=== PATIENT | male | born 1995 | race Caucasian/White ===

== ENCOUNTER → 2018-03-01 | Outpatient (CLI) | payer BC ==
[~2018-03-01] MED LIST: CREATINE PO; IBUP-1277 PO
--- NOTE | 2018-03-01 12:07 | DIAGNOSTIC IMAGING REPORT ---
LEFT KNEE 2 VIEWS CLINICAL HISTORY: Left knee infection. FINDINGS: AP and lateral views of the left knee are correlated with radiographs of the left tibia and fibula dated 12/04/2015. The skeletal structures are well mineralized. No fracture is seen. The joint spaces of the knee are well-maintained. A small joint effusion is suggested. Mild prepatellar soft tissue swelling is noted. IMPRESSION: 1. Prepatellar soft tissues along with no acute bony abnormality seen in the left knee. 2. Question a small joint effusion. Electronically signed by: Cy Naylor M.D. 03/01/2018 12:06 PM Dictated Date/Time: 03/01/2018 12:04 PM
== END | disposition home or self-care (01) ==
LOC: C.RADPV 11:51
PROVIDERS: ATTEND Family Medicine
DX: M00.9 Pyogenic arthritis, unspecified (principal)

== ENCOUNTER → 2018-04-08 | Outpatient (CLI) | payer BC | END | disposition home or self-care (01) | LOC: C.LABPVFM 12:28 | PROVIDERS: ATTEND Family Medicine | DX: J02.9 Acute pharyngitis, unspecified (principal) ==

== ENCOUNTER 2018-12-24 18:23 | Inpatient (IN) ==
[2018-12-24] MEDS ORDERED: LORazepam 1 MG TAB PO STA (19:00)
[2018-12-24 19:23] LABS: Basophils # (auto) 0.03 K/uL (0-0.2); Basophils % (auto) 0.4 %; Eosinophils # (auto) 0.25 K/uL (0-0.5); Hematocrit (blood only) 46.1 % (42-52); Hemoglobin 16.5 g/dL (14.0-18.0); Immature Granulocytes # (auto) 0.02 K/uL (0.00-0.02); Immature Granulocytes % (auto) 0.2 %; Lymphocytes # (auto) 1.29 K/uL (1.2-3.4); Lymphocytes % (auto) 15.4 %; Mean Corpuscular Hgb Conc 35.8 g/dL (32-36); Mean Corpuscular Volume 88.7 fL (80-100); Mean Platelet Volume 9.6 fL (7.4-10.4); Monocytes # (auto) 0.48 K/uL (0.11-0.59); Monocytes % (auto) 5.7 %; Neutrophils # (auto) 6.29 K/uL (1.4-6.5); Neutrophils % (auto) 75.3 %; Platelet Count 260 K/uL (130-400); RDW Coefficient of Variation 12.5 % (11.5-14.5); RDW Standard Deviation 40.2 fL (36.4-46.3); White Blood Count 8.36 K/uL (4.8-10.8)
[2018-12-24 19:35] LABS: Appearance Urine Clear (Clear); Bilirubin Urine Negative (Negative); Color Urine Yellow; Glucose Urine UA Negative (Negative); Ketones Urine 2+ (Negative); Leukocyte Esterase Urine Negative (Negative); Nitrite Urine Negative (Negative); Protein Urine Negative (Negative); Specific Gravity Urine 1.024 (1.000-1.030); Urobilinogen Urine Negative (Negative)
[2018-12-24 19:41] LABS: Albumin Level 4.9 gm/dl (3.4-5.0); BUN Creatinine Ratio 14.3 (10-20); Calcium 9.6 mg/dl (8.5-10.1); Creatinine Clr Calc Pharmacy 108.2 ml/min; Est GFR (African American) 113.1; Est GFR (Non-African American) 97.6
--- NOTE | 2018-12-24 19:47 | Emergency Department Note ---
Entered by Anastasia Olmedo acting as a scribe for Neo Sena DO History of Present Illness General Chief Complaint: Mental Health Evaluation Stated Complaint: 302, MENTAL HEALTH Time Seen by Provider: 12/24/18 18:45 Source: patient Mode of arrival: ambulatory Limitations: no limitations History of Present Illness Provider complaint: suicidal ideation Onset (ago): hour(s) (earlier today) Duration: other (episode) History of same: Yes Exacerbated By: + other (withdrawal) Context: + recent drug abuse and + significant life stressor Associated symptoms: + denies other symptoms (fever) and + nausea; no vomiting The patient is a 23 year old male who presents to the Emergency Room for a psych evaluation. The patient reports that he got out of rehab about 3 months ago and was clean for a month, but has used marijuana, Xanax and Heroin on and off for the past 2 months. He states that he woke up this morning experiencing withdrawal symptoms, and later found out that he was only scheduled to work only one day this week. He notes that he was feeling upset, so he messaged his mother that he wanted to kill himself. He reports that his mother "did not care, " so he messaged his girlfriend stating that he "wanted to blow his brains out. " The patient states that he "was not serious" and that he said it out of frustration. He reports that all the guns at his home are locked up. He admits to having suicidal ideations in the past and notes that he was admitted at this hospital for an intentional overdose of Tylenol. He denies any recent fevers, pain, vomiting or leg swelling. The patient reports that he last used IV heroin and PO Xanax 2 nights ago. He denies any alcohol use or persistent suicidal thoughts. Allergies Allergy/AdvReac Type Severity Reaction Status Date / Time No Known Allergies Allergy Verified 12/24/18 21:02 Past Med/Surg History Medical History Benzodiazepine abuse Heroin abuse IVDU (intravenous drug user) Substance abuse Surgical History No significant past surgical history Social History Current Living Situation: Family Feels Safe at Home: Yes Smoking Status: Current every day smoker Tobacco Type: e-cigarettes Hx Alcohol Use: Yes Hx Substance Use: Yes substance use type: marijuana, heroin and sedatives Last Used Substance: Days (ago) Last Used Substance Other:: 2 Beliefs That Will Affect Care: None Preferred Language: Guyanese Communication Ability: Effective Review of Systems See HPI for pertinent positives & negatives. and A total of 10 systems reviewed and were otherwise negative Physical Exam Vital Signs Vital Signs - 24 hr 12/24/18 18:41 12/24/18 21:01 12/24/18 23:00 Temperature 36.6 C Temperature Source Oral Sepsis Recent Fever Within 48 Hours No Sepsis New/Unexplained Change in Mental Status No Sepsis Action Taken by Nursing No Action Required Pulse Rate 75 Pulse Rate [Finger] 89 76 Pulse Rate [Left Brachial] Pulse Rhythm Regular Pulse Rhythm [Finger] Regular Regular Pulse Rhythm [Left Brachial] Pulse Strength Normal Pulse Strength [Finger] Normal Normal Pulse Strength [Left Brachial] Respiratory Rate 20 20 20 Respiratory Effort / Characteristics Non-Labored Non-Labored Non-Labored Respiratory Depth Normal Normal Normal Respiratory Pattern Regular Regular Regular Blood Pressure 118/79 Blood Pressure [Left Arm] 133/77 116/58 L Blood Pressure Mean 92 Blood Pressure Mean [Left Arm] 95 77 Blood Pressure Position Sitting Blood Pressure Position [Left Arm] Sitting Sitting Pulse Oximetry 99 98 98 Oxygen Delivery Method Room Air Room Air Room Air 12/25/18 00:10 12/25/18 06:31 12/25/18 09:23 Temperature 36.8 C 36.4 C L 36.5 C Temperature Source Oral Oral Oral Sepsis Recent Fever Within 48 Hours Sepsis New/Unexplained Change in Mental Status Sepsis Action Taken by Nursing Pulse Rate Pulse Rate [Finger] 68 Pulse Rate [Left Brachial] 76 78 Pulse Rhythm Pulse Rhythm [Finger] Regular Pulse Rhythm [Left Brachial] Regular Regular Pulse Strength Pulse Strength [Finger] Normal Pulse Strength [Left Brachial] Normal Normal Respiratory Rate 18 16 16 Respiratory Effort / Characteristics Non-Labored Spontaneous Non-Labored Non-Labored Respiratory Depth Normal Normal Normal Respiratory Pattern Regular Regular Blood Pressure Blood Pressure [Left Arm] 116/72 110/73 121/79 Blood Pressure Mean Blood Pressure Mean [Left Arm] 86 85 93 Blood Pressure Position Blood Pressure Position [Left Arm] Lying Sitting Lying Pulse Oximetry Oxygen Delivery Method Room Air GENERAL: Patient is awake and alert. He is somewhat anxious and guarded. EYES: The conjunctivae are clear. The pupils are round and reactive. EARS, NOSE, MOUTH AND THROAT: The nose is without any evidence of any deformity. Mucous membranes are moist tongue is midline NECK: The neck is nontender and supple. RESPIRATORY: Normal respiratory effort is noted there is no evidence of wheezing rhonchi or rales CARDIOVASCULAR: Regular rate and rhythm noted there no murmurs rubs or gallops normal S1 normal S2 GASTROINTESTINAL: The abdomen is soft. Bowel sounds are present in all quadrants. Abdomen is nontender. MUSCULOSKELETAL/EXTREMITIES: There is no evidence of gross deformity full range of motion is noted in the hips and shoulders SKIN: There is no obvious evidence of any rash. There is no pedal edema noted. Patient has track [place] in his right antecubital fossa. There is no signs of erythema or swelling. NEUROLOGIC: Patient is awake alert and oriented x3 strength is symmetric patellar reflexes are 2+ bilaterally PSYCH: The patient is guarded appearing. He is somewhat anxious. He is currently denying any suicidal homicidal ideation but he does admit to making those statements earlier to his mother as well as his significant other. Course 1849: Past medical records reviewed. The patient was evaluated in room A7, and a complete history and physical examination were performed. 2244: The patient was accepted into [address] [place] [address]. Administered Medications Discontinued Medications Lorazepam (Ativan) 1 mg PO NOW STA Stop: 12/24/18 19:01 Last Admin: 12/24/18 19:21 Dose: 1 mg Medical Decision Making Differential Diagnosis Differential diagnoses considered include mood disorder, infection, hypoglycemia , electrolyte abnormalities, cardiac sources, intracerebral event, toxicologic, neurologic, as well as others. Medical Records Attestation: I reviewed the patient's medical records. Home Medications Current Medication List: was personally reviewed by me Laboratory Data Attestation: I reviewed the patient's lab results. Result diagrams: 12/24/18 19:03 12/24/18 19:03 Lab Results 12/24/18 12/24/18 12/24/18 Range/Units 19:00 19:00 19:03 WBC 8.36 (4.8-10.8) K/uL RBC 5.20 (4.7-6.1) M/uL Hgb 16.5 (14.0-18.0) g/dL Hct 46.1 (42-52) % MCV 88.7 (80-100) fL MCH 31.7 (25-34) pg MCHC 35.8 (32-36) g/dL RDW Std Deviation 40.2 (36.4-46.3) fL RDW Coeff of Tamika 12.5 (11.5-14.5) % Plt Count 260 (130-400) K/uL MPV 9.6 (7.4-10.4) fL Immature Gran % (Auto) 0.2 % Neut % (Auto) 75.3 % Lymph % (Auto) 15.4 % Dodge % (Auto) 5.7 % Eos % (Auto) 3.0 % Baso % (Auto) 0.4 % Immature Gran # (Auto) 0.02 (0.00-0.02) K/uL Neut # (Auto) 6.29 (1.4-6.5) K/uL Lymph # (Auto) 1.29 (1.2-3.4) K/uL Dodge # (Auto) 0.48 (0.11-0.59) K/uL Eos # (Auto) 0.25 (0-0.5) K/uL Baso # (Auto) 0.03 (0-0.2) K/uL Sodium (136-145) mmol/L Potassium (3.5-5.1) mmol/L Chloride (98-107) mmol/L Carbon Dioxide (21-32) mmol/L Anion Gap (3-11) BUN (7-18) mg/dl Creatinine (0.6-1.4) mg/dl Est Cr Clr Drug Dosing ml/min Est GFR ( Amer) Est GFR (Non-Af Amer) BUN/Creatinine Ratio (10-20) Glucose (70-99) mg/dl Calcium (8.5-10.1) mg/dl Total Bilirubin (0.2-1) mg/dl AST (15-37) U/L ALT (12-78) U/L Alkaline Phosphatase (45-117) U/L Total Protein (6.4-8.2) gm/dl Albumin (3.4-5.0) gm/dl Globulin (2.5-4.0) gm/dl Albumin/Globulin Ratio (0.9-2) TSH (0.300-4.500) uIu/ml Urine Color Yellow Urine Appearance Clear (Clear) Urine pH 6.0 (4.5-7.5) Ur Specific Davis 1.024 (1.000-1.030) Urine Protein Negative (Negative) Urine Glucose (UA) Negative (Negative) Urine Ketones 2+ H (Negative) Urine Blood Negative (Negative) Urine Nitrite Negative (Negative) Urine Bilirubin Negative (Negative) Urine Urobilinogen Negative (Negative) Ur Leukocyte Esterase Negative (Negative) Salicylates (2.8-20) mg/dl Urine Opiates Screen Pos H (Neg) Ur Methadone, Qual Neg (Neg) Acetaminophen (10-30) ug/ml Urine Barbiturates Neg (Neg) Ur Phencyclidine (PCP) Neg (Neg) U Amphetamin/Meth Scrn Neg (Neg) MDMA (Ecstasy) Screen Neg (Neg) U Benzodiazepines Scrn Neg (Neg) Ur Cocaine Metabolite Neg (Neg) U Marijuana (THC) Screen Pos H (Neg) Ethyl Alcohol mg/dL (0-3) mg/dl 12/24/18 12/24/18 12/24/18 Range/Units 19:03 19:03 19:03 WBC (4.8-10.8) K/uL RBC (4.7-6.1) M/uL Hgb (14.0-18.0) g/dL Hct (42-52) % MCV (80-100) fL MCH (25-34) pg MCHC (32-36) g/dL RDW Std Deviation (36.4-46.3) fL RDW Coeff of Tamika (11.5-14.5) % Plt Count (130-400) K/uL MPV (7.4-10.4) fL Immature Gran % (Auto) % Neut % (Auto) % Lymph % (Auto) % Dodge % (Auto) % Eos % (Auto) % Baso % (Auto) % Immature Gran # (Auto) (0.00-0.02) K/uL Neut # (Auto) (1.4-6.5) K/uL Lymph # (Auto) (1.2-3.4) K/uL Dodge # (Auto) (0.11-0.59) K/uL Eos # (Auto) (0-0.5) K/uL Baso # (Auto) (0-0.2) K/uL Sodium 138 (136-145) mmol/L Potassium 4.0 (3.5-5.1) mmol/L Chloride 105 (98-107) mmol/L Carbon Dioxide 24 (21-32) mmol/L Anion Gap 9.0 (3-11) BUN 15 (7-18) mg/dl Creatinine 1.08 (0.6-1.4) mg/dl Est Cr Clr Drug Dosing 108.2 ml/min Est GFR ( Amer) 113.1 Est GFR (Non-Af Amer) 97.6 BUN/Creatinine Ratio 14.3 (10-20) Glucose 77 (70-99) mg/dl Calcium 9.6 (8.5-10.1) mg/dl Total Bilirubin 1.6 H (0.2-1) mg/dl AST 15 (15-37) U/L ALT 23 (12-78) U/L Alkaline Phosphatase 82 (45-117) U/L Total Protein 8.0 (6.4-8.2) gm/dl Albumin 4.9 (3.4-5.0) gm/dl Globulin 3.1 (2.5-4.0) gm/dl Albumin/Globulin Ratio 1.6 (0.9-2) TSH 0.748 (0.300-4.500) uIu/ml Urine Color Urine Appearance (Clear) Urine pH (4.5-7.5) Ur Specific Davis (1.000-1.030) Urine Protein (Negative) Urine Glucose (UA) (Negative) Urine Ketones (Negative) Urine Blood (Negative) Urine Nitrite (Negative) Urine Bilirubin (Negative) Urine Urobilinogen (Negative) Ur Leukocyte Esterase (Negative) Salicylates < 1.7 L (2.8-20) mg/dl Urine Opiates Screen (Neg) Ur Methadone, Qual (Neg) Acetaminophen < 2 L (10-30) ug/ml Urine Barbiturates (Neg) Ur Phencyclidine (PCP) (Neg) U Amphetamin/Meth Scrn (Neg) MDMA (Ecstasy) Screen (Neg) U Benzodiazepines Scrn (Neg) Ur Cocaine Metabolite (Neg) U Marijuana (THC) Screen (Neg) Ethyl Alcohol mg/dL < 3.0 (0-3) mg/dl Blood Pressure Blood Pressure Findings: Normal blood pressure Blood Pressure Disposition: did not require urgent referral MDM Narrative The patient is a 23-year-old male who presented to the emergency department for mental health evaluation. The patient has significant depression and suicidal ideation thoughts that he conveyed to family members. The patient was medically cleared in the emergency department. He was very anxious and was treated for his anxiety. The patient was reevaluated. He was felt to be a good candidate for voluntary admission. He was evaluated by the mental health case resource manager. He was felt to be a good candidate for admission to our inpatient unit. He was accepted as a 201. Impression & Plan Depression, Suicidal ideation Discharge Plan Visit Data *Final* Discharge Date/Time: 12/24/18 23:37 Chief Complaint: Mental Health Evaluation Stated Complaint: 302, MENTAL HEALTH ED Provider: Neo Sena Discharge Problem: Depression, Suicidal ideation Patient Disposition: Transfer Behavioral Health Fac Discharge Instructions Interventions: ED Discharge Assessment Last Done: 12/24/18 23:37 The scribe's documentation has been prepared under my direction and personally reviewed by me in its entirety. I confirm that the note above accurately reflects all work, treatment, procedures, and medical decision making performed by me.
[2018-12-24 19:51] LABS: Albumin Globulin Ratio 1.6 (0.9-2); Bilirubin,Total 1.6 mg/dl (0.2-1); Globulin 3.1 gm/dl (2.5-4.0)
[2018-12-24 20:00] LABS: Amphetamines+Metham, Urine Neg (Neg); Barbiturates, Urine Neg (Neg); Benzodiazepine, Urine Neg (Neg); Cocaine, Urine Neg (Neg); MDMA (Ecstacy), Urine Neg (Neg); Methadone, Urine Neg (Neg); Opiate, Urine Pos (Neg); Phencyclidine, Urine Neg (Neg)
[2018-12-24 20:01] LABS: Acetaminophen < 2 ug/ml (10-30); Salicylate < 1.7 mg/dl (2.8-20)
[2018-12-24] MEDS ORDERED: ACETAMINOPHEN 325 MG TAB PO PRN (23:49)
[2018-12-24] MEDS ORDERED: BISMUTH SUBSALICYLATE PER ML OMNICELL CHARGE PO PRN (23:49)
[2018-12-24] MEDS ORDERED: ALUMINUM/MAGNESIUM SUSP 30 ML UDC PO PRN (23:49)
[2018-12-24] MEDS ORDERED: SODIUM CHLORIDE 0.65% NA SOLN 45 ML (OCEAN) PRN (23:49)
[2018-12-24] MEDS ORDERED: MAGNESIUM HYDROXIDE SUSP 30 ML UDC PO PRN (23:49)
[2018-12-25] MEDS ORDERED: DIPHENOXYLATE/ATROPINE 2.5/0.025MG TAB PO PRN (09:14)
--- NOTE | 2018-12-25 09:55 | History & Physical ---
Date of Service December 25, 2018 Impression / Recommendations Impression 23-year-old single adopted male with a history of polysubstance abuse and a question of substance-induced mood disorder who presents in opiate withdrawal after using heroin heavily for the past month. He made suicidal statements to his mother and girlfriend prior to admission, but states he did not mean it and said it because he was upset that he was not getting as many hours at work and might not be able to continue to live with his parents due to his behavior. He had also just discovered that he may face charges for theft, and was starting to withdraw from drugs, so says he "freaked out" and made suicidal statements. He denies now that he was ever suicidal, and makes comments that he "knows how to play the system." We have reviewed the primary recommendation, which is for inpatient rehab, with transfer directly from the hospital to a rehab facility. (1) Suicidal ideation: 12/25 - Although patient admits to making suicidal statements prior to admission, he denies that he was ever suicidal and says he made the statements out of anger/attempts to manipulate others. This is consistent with malingering , given the secondary gain of avoiding legal consequences (is on probation with possible new charges and ongoing drug use), and possible loss of housing. -Continue safety checks here, and work on healthy coping skills and discharge safety plan. -Family meeting with parents; confirm that guns are still locked and patient does not have access (per ER notes, mother reported they are). Even though patient denies he was ever truly suicidal, he does have risk factors, including his history of self-harm, substance abuse, impulsivity, and numerous psychosocial stressors. Present on Admission?: Yes (2) Heroin abuse: 12/25 -treat withdrawal symptoms with clonidine as needed. -Reviewed the risks of ongoing drug use, including negative effects on mood, anxiety, overall health, illness transmission via needles, negative impact to relationships and functioning, and legal consequences. Reviewed that we cannot make a primary mental health diagnosis while he is actively using, and that the primary treatment recommendation is inpatient rehab. He states willingness to attend rehab at a specific facility in [place], wants to be able to go home first. Reviewed with him that this is certainly not recommended, due to the risk of relapse, and that we would recommend direct transfer from the hospital to a rehab facility. Reviewed the need to allow referrals to multiple facilities so that treatment can begin as soon as possible. The patient is psychiatrically appropriate for transfer to rehab as soon as a bed can be secured. Present on Admission?: Yes (3) Benzodiazepine abuse: 12/25 -[facility] protocol for withdrawal. -See above regarding substance abuse treatment recommendations. Present on Admission?: Yes Inventory Assets Strengths: Supportive parents, possible willingness for rehab Needs: Inpatient rehab, [place] with the legal system Risk Factors Assessment Male: Yes : No Do You Have Access To A Gun?: No (Parents have guns, but locks them and the patient does not have access.) Health Problems: No Mental Health Diagnoses: Yes (Possibly, although unclear if all of his mood symptoms are in fact substance-induced) Substance Use Disorders: Yes Previous Attempt: Yes Previous Attempt; Highly Lethal: Yes Family History of Suicide: No Previous Psychiatric Hospitalization: Yes Hopelessness: No Smoker: Yes Protective Factors Assessment Rastafari Beliefs: No : No Responsible for Young Children: No Employed: Yes Stable Relationships: Yes Supportive Family: Yes Good Rapport with Provider: No Psychiatric History Identifying Data FRIDA BETTENCOURT is a 23-year-old M who currently lives in [place] with his parents, has a history of substance-induced mood disorder and polysubstance abuse (benzodiazepines, cough syrup, heroin, and cannabis), and was admitted on 12/24/18 22:55 on a 201 voluntary commitment for suicidal ideation and substance abuse. Chief Complaint "Feel sick, withdrawing from stuff". History of Present Illness Patient is known to us from a previous hospitalization for 3 days in October of this year after he overdosed on Tylenol in the context of severe substance abuse. He had been using alprazolam, cannabis, heroin, and cough syrup. He stated that he obtained a large amount of alprazolam with intent to sell it, but then started using it, and became suicidal. The primary recommendation was for inpatient rehab, which he refused. He also refused outpatient substance abuse treatment. He was uncooperative with treatment, refused to attend groups , but did agree to resume lamotrigine, as he previously felt it was beneficial. He had inappropriate behavior on the unit and attempted to elope during his stay. A family meeting was held with his parents, and family therapy was recommended. His mother agreed to control his medications, and parents confirmed that firearms in the home were secured and he would not have access. He eventually agreed to follow up with a substance abuse counselor, and was referred to [facility]. He presented to the ER last night after he made suicidal statements to his mother and girlfriend. He denied suicidal thoughts in the ER, but admitted he had made statements prior to presentation. Track wellington were noted on his right arm, and he admitted to regular heroin and benzodiazepine use. His drug screen was positive for opiates and benzodiazepines. He said that he was withdrawing from drugs, and then got into an argument with his mother as he was upset that he was not scheduled to work very much over the next 2 weeks, and because he did not think she was taking him seriously, he made threats to kill himself by "blowing his brains out." He stated that there are guns at his parents' home, but he does not have access to them as they are locked up. He admitted that he was noncompliant with Lamictal and had not been taking it for at least a month, and that he never followed up with outpatient treatment. He reported willingness for rehab, and said he had been in contact with a facility in [place] called at [facility] and wanted to go there. His mother reported to ER staff that the patient has been using drugs heavily, has lost 30 pounds in the past few weeks (although his weight on admission was only a few pounds less than his weight in October), and that his employer recently notified her that he had stolen from the store and they would be pressing charges. He also stole his mother's gold bracelet. He made comments that he "knows how to play the system." On my assessment, the patient was resistant to getting out of bed to participate in the interview. He stated that he does not feel well, and is having withdrawal symptoms, but was vague and evasive when asked what he was withdrawing from, stating "stuff," "just using," and "drugs." He eventually reported using heroin about 20 out of the past 30 days, typically 3-4 bags a day , and benzodiazepines, from 2-16 mg of alprazolam daily. He states that he "freaked out" after he found out he was only scheduled to work one day a week for the next couple of weeks, as his parents told him that if he was not working he could not continue to live with them. He denies that he was ever suicidal, stating "it was not real," "I just said it." He initially states he is willing for rehab, then states he will only go to the facility in [place] , and he wants to go home for so that he can pack his bags. When advised of the recommendations to go directly to rehab from the hospital, and that his parents could pack his belongings for him, he says he will not allow that and wants to go home first. No symptoms consistent with radha (other than elevated mood, impulsivity and disregulated sleep, which occurred abusing multiple substances), psychosis, HI. Reports anxiety in the context of withdrawal. Past Psychiatric History Previous Psych History: Per patient, he was diagnosed with bipolar disorder in the past. At the time of his last hospitalization here, he was diagnosed with substance-induced mood disorder, but there is no evidence to support a bipolar disorder diagnosis. He has never been compliant with outpatient psychiatric treatment; although he has been scheduled to see multiple psychiatrist in the past, he has not followed through. Current Psychiatric Diagnosis: Substance abuse, history of substance-induced mood disorder Outpatient Services: None. Was referred to [facility] October 2018, but did not attend his appointment. Previous Psych Admissions: [facility] behavioral health unit for 3 days in October 2018. Do You Have Access To A Gun?: No (Parents have guns, but locks them and the patient does not have access.) History of Previous Suicide Attempt: Yes Describe Attempts in the Past: October 2018 - OD on Tylenol Past Medication Trials: Lamotrigine -noncompliant, although reported it was helpful in the past for mood stability Gabapentin -discontinued due to abuse Allergies Allergy/AdvReac Type Severity Reaction Status Date / Time No Known Allergies Allergy Verified 12/24/18 21:02 Family History Family History of: Alcoholism/Drug Abuse and Doesn't Know Alcohol History Hx of Alcohol Use Over the Past 12 Months: No AUDIT Total Score: 0 Smoking Use Have You Smoked or Used Tobacco Products in the Last 30 Days: Yes tobacco type: e-cigarettes Smoking Status: Current every day smoker Substance History Hx of Prescription Med Misuse Over the Past 12 Months: Yes (Xanax: 11-12 bars ( 2mg each) at a time, daily for at least the past month) Hx of Over the Counter Med Misuse Over the Past 12 Months: No Hx of Inhalent Misuse Over the Past 12 Months: No Hx of Organic Substance Use Over the Past 12 Months: Yes (Cannabis) Hx of Illegal Substances/Street Drug Use Over Past 12 Months: Yes (IV heroin use , patient estimates 20 out of the past 30 days, 3-4 bags a day.) Problems as a Result of Past Substance Use: Arrested, Life out of Control, Sustained Bodily Harm, Attempted Suicide and Loss of Family Support Problems as a Result of Past Substance Use Comments: arrested for selling pot - multiple felony charges Personal History Living Arrangements: Home Living Arrangements Comments: With parents in spring Highest Grade Completed: High School Graduate 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 at the time of his last hospitalization. Hx Legal Problems: Yes (On probation for felony drug charges) Patient History Medical History Benzodiazepine abuse Heroin abuse IVDU (intravenous drug user) Substance abuse Surgical History No significant past surgical history Family History Mother Substance abuse Social History Current Living Situation: Family Feels Safe at Home: Yes Smoking Status: Current every day smoker Tobacco Type: e-cigarettes Hx Alcohol Use: Yes Hx Substance Use: Yes substance use type: marijuana, heroin and sedatives Last Used Substance: Days (ago) Last Used Substance Other:: 2 Beliefs That Will Affect Care: None Preferred Language: Egyptian Communication Ability: Effective Review of Systems All systems reviewed & are unremarkable except as noted in HPI & below rhinorrhea, achiness, nausea Physical Exam Psychiatric Orientation: alert; + uncooperative Not forthcoming with information, evasive. Lying in bed in no acute distress. Shirtless, nose pierced. Eye Contact: + poor eye contact Motor Behavior: no abnormal motor movements Speech: normal rate/rhythm/volume of speech Affect: + blunted affect "I'm sick, withdrawing." Thought Process: goal directed thought process Thought Content: reality based without delusions Suicidal Thoughts: + reports suicidal thoughts Homicidal Thoughts: + reports homicidal thoughts Hallucinations: no auditory hallucinations and no visual hallucinations Cognition: recent memory grossly intact, attention grossly intact and language grossly intact Estimated Intelligence: consistent with education level Insight: + poor insight Judgement: + poor judgement Vital Signs (Past 24 Hours) Last Vital Signs Temp 36.4 C L 12/25/18 06:31 Pulse 76 12/25/18 06:31 Resp 16 12/25/18 06:31 BP 145/83 H 12/25/18 06:31 Pulse Ox 98 12/24/18 23:00 A physical exam was performed in the ER prior to admission to the unit by Dr. Sena. I accept that physical as correct/medical clearance for the inpatient physical exam. Results & Data Laboratory Results Laboratory Results - last 24 hr 12/24/18 12/24/18 12/24/18 19:00 19:00 19:03 WBC 8.36 RBC 5.20 Hgb 16.5 Hct 46.1 MCV 88.7 MCH 31.7 MCHC 35.8 RDW Std Deviation 40.2 RDW Coeff of Tamika 12.5 Plt Count 260 MPV 9.6 Immature Gran % (Auto) 0.2 Neut % (Auto) 75.3 Lymph % (Auto) 15.4 [place] % (Auto) 5.7 Eos % (Auto) 3.0 Baso % (Auto) 0.4 Immature Gran # (Auto) 0.02 Neut # (Auto) 6.29 Lymph # (Auto) 1.29 [place] # (Auto) 0.48 Eos # (Auto) 0.25 Baso # (Auto) 0.03 Sodium Potassium Chloride Carbon Dioxide Anion Gap BUN Creatinine Est Cr Clr Drug Dosing Est GFR ( Amer) Est GFR (Non-Af Amer) BUN/Creatinine Ratio Glucose Calcium Total Bilirubin AST ALT Alkaline Phosphatase Total Protein Albumin Globulin Albumin/Globulin Ratio TSH Urine Color Yellow Urine Appearance Clear Urine pH 6.0 Ur Specific [place] 1.024 Urine Protein Negative Urine Glucose (UA) Negative Urine Ketones 2+ H Urine Blood Negative Urine Nitrite Negative Urine Bilirubin Negative Urine Urobilinogen Negative Ur Leukocyte Esterase Negative Salicylates Urine Opiates Screen Pos H Ur Methadone, Qual Neg Acetaminophen Urine Barbiturates Neg Ur Phencyclidine (PCP) Neg U Amphetamin/Meth Scrn Neg MDMA (Ecstasy) Screen Neg U Benzodiazepines Scrn Neg Ur Cocaine Metabolite Neg U Marijuana (THC) Screen Pos H Ethyl Alcohol mg/dL 12/24/18 12/24/18 12/24/18 19:03 19:03 19:03 WBC RBC Hgb Hct MCV MCH MCHC RDW Std Deviation RDW Coeff of Tamika Plt Count MPV Immature Gran % (Auto) Neut % (Auto) Lymph % (Auto) [place] % (Auto) Eos % (Auto) Baso % (Auto) Immature Gran # (Auto) Neut # (Auto) Lymph # (Auto) [place] # (Auto) Eos # (Auto) Baso # (Auto) Sodium 138 Potassium 4.0 Chloride 105 Carbon Dioxide 24 Anion Gap 9.0 BUN 15 Creatinine 1.08 Est Cr Clr Drug Dosing 108.2 Est GFR ( Amer) 113.1 Est GFR (Non-Af Amer) 97.6 BUN/Creatinine Ratio 14.3 Glucose 77 Calcium 9.6 Total Bilirubin 1.6 H AST 15 ALT 23 Alkaline Phosphatase 82 Total Protein 8.0 Albumin 4.9 Globulin 3.1 Albumin/Globulin Ratio 1.6 TSH 0.748 Urine Color Urine Appearance Urine pH Ur Specific [place] Urine Protein Urine Glucose (UA) Urine Ketones Urine Blood Urine Nitrite Urine Bilirubin Urine Urobilinogen Ur Leukocyte Esterase Salicylates < 1.7 L Urine Opiates Screen Ur Methadone, Qual Acetaminophen < 2 L Urine Barbiturates Ur Phencyclidine (PCP) U Amphetamin/Meth Scrn MDMA (Ecstasy) Screen U Benzodiazepines Scrn Ur Cocaine Metabolite U Marijuana (THC) Screen Ethyl Alcohol mg/dL < 3.0 Current Inpatient Medications Current Inpatient Medications: Current Inpatient Medications Acetaminophen (Tylenol) 650 mg PO Q4H PRN PRN Reason: Headache or Minor Fever Stop: 01/23/19 23:48 Al Hydrox/Mg Hydrox/Simethicone (Maalox) 30 ml PO Q4H PRN PRN Reason: GI Upset Stop: 01/23/19 23:48 Bismuth Subsalicylate (Kaopectate) 15 ml PO PRN PRN PRN Reason: Loose Stool Stop: 01/23/19 23:48 Diphenoxylate HCl/Atropine (Lomotil) 1 tab PO Q4H PRN PRN Reason: Abdomincal cramping/diarrhea Stop: 01/24/19 09:13 Hydroxyzine HCl (Vistaril) 25 mg PO Q4H PRN PRN Reason: Anxiety Stop: 01/23/19 23:48 Hydroxyzine HCl (Vistaril) 50 mg PO HSZ PRN PRN Reason: Insomnia Stop: 01/23/19 23:48 Magnesium Hydroxide (Milk Of Magnesia) 30 ml PO DAILY PRN PRN Reason: Heartburn Stop: 01/23/19 23:48 Sodium Chloride ([place] Nasal) 1 - 2 sprays NA PRN PRN PRN Reason: Nasal Dryness/Congestion Stop: 01/23/19 23:48 CPT Code CPT Code Initial Hospital Care: [id number]
[2018-12-25] MEDS ORDERED: cloNIDine HCl 0.1 MG TAB PO PRN (11:09)
--- NOTE | 2018-12-25 12:38 | Discharge Summary ---
Date of Service December 25, 2018 History of Present Illness Patient is known to us from a previous hospitalization for 3 days in October of this year after he overdosed on Tylenol in the context of severe substance abuse. He had been using alprazolam, cannabis, heroin, and cough syrup. He stated that he obtained a large amount of alprazolam with intent to sell it, but then started using it, and became suicidal. The primary recommendation was for inpatient rehab, which he refused. He also refused outpatient substance abuse treatment. He was uncooperative with treatment, refused to attend groups , but did agree to resume lamotrigine, as he previously felt it was beneficial. He had inappropriate behavior on the unit and attempted to elope during his stay. A family meeting was held with his parents, and family therapy was recommended. His mother agreed to control his medications, and parents confirmed that firearms in the home were secured and he would not have access. He eventually agreed to follow up with a substance abuse counselor, and was referred to [facility]. He presented to the ER last night after he made suicidal statements to his mother and girlfriend. He denied suicidal thoughts in the ER, but admitted he had made statements prior to presentation. Track wellington were noted on his right arm, and he admitted to regular heroin and benzodiazepine use. His drug screen was positive for opiates and benzodiazepines. He said that he was withdrawing from drugs, and then got into an argument with his mother as he was upset that he was not scheduled to work very much over the next 2 weeks, and because he did not think she was taking him seriously, he made threats to kill himself by "blowing his brains out." He stated that there are guns at his parents' home, but he does not have access to them as they are locked up. He admitted that he was noncompliant with Lamictal and had not been taking it for at least a month, and that he never followed up with outpatient treatment. He reported willingness for rehab, and said he had been in contact with a facility in [place] called at [facility] and wanted to go there. His mother reported to ER staff that the patient has been using drugs heavily, has lost 30 pounds in the past few weeks (although his weight on admission was only a few pounds less than his weight in October), and that his employer recently notified her that he had stolen from the store and they would be pressing charges. He also stole his mother's gold bracelet. He made comments that he "knows how to play the system." On my assessment, the patient was resistant to getting out of bed to participate in the interview. He stated that he does not feel well, and is having withdrawal symptoms, but was vague and evasive when asked what he was withdrawing from, stating "stuff," "just using," and "drugs." He eventually reported using heroin about 20 out of the past 30 days, typically 3-4 bags a day , and benzodiazepines, from 2-16 mg of alprazolam daily. He states that he "freaked out" after he found out he was only scheduled to work one day a week for the next couple of weeks, as his parents told him that if he was not working he could not continue to live with them. He denies that he was ever suicidal, stating "it was not real," "I just said it." He initially states he is willing for rehab, then states he will only go to the facility in [place] , and he wants to go home for so that he can pack his bags. When advised of the recommendations to go directly to rehab from the hospital, and that his parents could pack his belongings for him, he says he will not allow that and wants to go home first. No symptoms consistent with radha (other than elevated mood, impulsivity and disregulated sleep, which occurred abusing multiple substances), psychosis, HI. Reports anxiety in the context of withdrawal. Physical Exam Mental Examination See H&P from today. Vital Signs (Past 24 Hours) Last Vital Signs Temp 36.5 C 12/25/18 09:23 Pulse 78 12/25/18 09:23 Resp 16 12/25/18 09:23 BP 121/79 12/25/18 09:23 Pulse Ox 98 12/24/18 23:00 Principal Diagnosis Heroin, benzodiazepine, and cannabis use disorders, severe. Malingering. Antisocial personality traits. Psychiatric Data The patient presented to the emergency room yesterday and was admitted voluntarily. He has denied suicidal ideations since presentation, stating that although he made suicidal statements, he was not truly suicidal and had no intent to harm himself. He admitted to trying to "play the system," and says he was upset that he was given fewer hours at work. His mother also disclosed that he stole from his employer and may face criminal charges. He endorses heavy heroin and alprazolam abuse for at least the past month, as well as noncompliance with outpatient treatment that was previously arranged during his hospitalization last month. He agreed to rehab, and staff contacted [facility] in [place], who confirmed they had been in contact with the patient and would accept him for inpatient rehab. His mother was contacted and supported him going to rehab, and agreed to bring in clothing for him. The patient wanted to return home to [facility] first, but was advised that this was against the recommendations, and that he should go straight to rehab in order to decrease his risk of relapse. He has been on the phone frequently throughout the day, and continues to endorse willingness to go to rehab and get sober. Day of Discharge Assessment Patient reports mild withdrawal symptoms with fatigue, achiness, and rhinorrhea. He denies symptoms of benzodiazepine withdrawal, and vital signs have been normal and stable since admission. He denies thoughts of harming himself or anyone else, denies psychotic symptoms, and reports mood is "okay." He did attend group this morning and dissipated appropriately. Transition of Care Transition Of Care Record: was reviewed with the patient Advance Directives Advance Directives Information Provided: No Advance Directives: No Mental Health Advance Directive: No Advance Directives on File: No Living Will: No Power of Intelligence Clerk: No Advance Directives Reason:: Declines as Mental Health Visit. Risk Factors Assessment Risk factors were mitigated by admission to the inpatient unit, treatment of heroin withdrawal symptoms, assessment for the presence of an underlying mental health condition, involvement in groups and therapy, involvement of parents who he lives with, coordinating care with the inpatient rehab facility of his choice , and assistance with arranging transfer to inpatient rehab to address his addictions issues. The patient is denying suicidal thoughts, has not engaged in self-injurious behavior, is requesting to go to rehab, and has been accepted at his chosen facility. He is not at acute risk of harm to himself or others, so can be transferred to inpatient rehab at this time. He is at chronic increased risk compared to the general population given his risk factors of history of violence, history of self injury/suicide attempt, severe substance abuse, and poor compliance with treatment, but these are not likely to be mitigated by ongoing inpatient treatment at this time. Male: Yes : No Do You Have Access To A Gun?: No (Parents have guns, but locks them and the patient does not have access.) Health Problems: No Mental Health Diagnoses: Yes (Possibly, although unclear if all of his mood symptoms are in fact substance-induced) Substance Use Disorders: Yes Previous Attempt: Yes Previous Attempt; Highly Lethal: Yes Family History of Suicide: No Previous Psychiatric Hospitalization: Yes Hopelessness: No Smoker: Yes Protective Factors Assessment Christianity Beliefs: No : No Responsible for Young Children: No Employed: Yes Stable Relationships: Yes Supportive Family: Yes Good Rapport with Provider: No Tobacco Cessation at Discharge Tobacco Cessation Medication Prescribed at Discharge: Offered & Pt Refused Total Time Total Time Spent: Greater Than 30 Minutes Total Time Includes: Examination of the patient, Discharge Planning and Medication Reconciliation Discharge Data Lab Results 12/24/18 12/24/18 12/24/18 19:00 19:00 19:03 WBC 8.36 RBC 5.20 Hgb 16.5 Hct 46.1 MCV 88.7 MCH 31.7 MCHC 35.8 RDW Std Deviation 40.2 RDW Coeff of Tamika 12.5 Plt Count 260 MPV 9.6 Immature Gran % (Auto) 0.2 Neut % (Auto) 75.3 Lymph % (Auto) 15.4 [place] % (Auto) 5.7 Eos % (Auto) 3.0 Baso % (Auto) 0.4 Immature Gran # (Auto) 0.02 Neut # (Auto) 6.29 Lymph # (Auto) 1.29 [place] # (Auto) 0.48 Eos # (Auto) 0.25 Baso # (Auto) 0.03 Sodium Potassium Chloride Carbon Dioxide Anion Gap BUN Creatinine Est Cr Clr Drug Dosing Est GFR ( Amer) Est GFR (Non-Af Amer) BUN/Creatinine Ratio Glucose Calcium Total Bilirubin AST ALT Alkaline Phosphatase Total Protein Albumin Globulin Albumin/Globulin Ratio TSH Urine Color Yellow Urine Appearance Clear Urine pH 6.0 Ur Specific [place] 1.024 Urine Protein Negative Urine Glucose (UA) Negative Urine Ketones 2+ H Urine Blood Negative Urine Nitrite Negative Urine Bilirubin Negative Urine Urobilinogen Negative Ur Leukocyte Esterase Negative Salicylates Urine Opiates Screen Pos H Ur Methadone, Qual Neg Acetaminophen Urine Barbiturates Neg Ur Phencyclidine (PCP) Neg U Amphetamin/Meth Scrn Neg MDMA (Ecstasy) Screen Neg U Benzodiazepines Scrn Neg Ur Cocaine Metabolite Neg U Marijuana (THC) Screen Pos H Ethyl Alcohol mg/dL 12/24/18 12/24/18 12/24/18 19:03 19:03 19:03 WBC RBC Hgb Hct MCV MCH MCHC RDW Std Deviation RDW Coeff of Tamika Plt Count MPV Immature Gran % (Auto) Neut % (Auto) Lymph % (Auto) [place] % (Auto) Eos % (Auto) Baso % (Auto) Immature Gran # (Auto) Neut # (Auto) Lymph # (Auto) [place] # (Auto) Eos # (Auto) Baso # (Auto) Sodium 138 Potassium 4.0 Chloride 105 Carbon Dioxide 24 Anion Gap 9.0 BUN 15 Creatinine 1.08 Est Cr Clr Drug Dosing 108.2 Est GFR ( Amer) 113.1 Est GFR (Non-Af Amer) 97.6 BUN/Creatinine Ratio 14.3 Glucose 77 Calcium 9.6 Total Bilirubin 1.6 H AST 15 ALT 23 Alkaline Phosphatase 82 Total Protein 8.0 Albumin 4.9 Globulin 3.1 Albumin/Globulin Ratio 1.6 TSH 0.748 Urine Color Urine Appearance Urine pH Ur Specific [place] Urine Protein Urine Glucose (UA) Urine Ketones Urine Blood Urine Nitrite Urine Bilirubin Urine Urobilinogen Ur Leukocyte Esterase Salicylates < 1.7 L Urine Opiates Screen Ur Methadone, Qual Acetaminophen < 2 L Urine Barbiturates Ur Phencyclidine (PCP) U Amphetamin/Meth Scrn MDMA (Ecstasy) Screen U Benzodiazepines Scrn Ur Cocaine Metabolite U Marijuana (THC) Screen Ethyl Alcohol mg/dL < 3.0 Hospital Course (1) Suicidal ideation: 12/25 - Although patient admits to making suicidal statements prior to admission, he denies that he was ever suicidal and says he made the statements out of anger/attempts to manipulate others. This is consistent with malingering , given the secondary gain of avoiding legal consequences (is on probation with possible new charges and ongoing drug use), and possible loss of housing. -Continue safety checks here, and work on healthy coping skills and discharge safety plan. -Family meeting with parents; confirm that guns are still locked and patient does not have access (per ER notes, mother reported they are). Even though patient denies he was ever truly suicidal, he does have risk factors, including his history of self-harm, substance abuse, impulsivity, and numerous psychosocial stressors. (2) Heroin abuse: 12/25 -treat withdrawal symptoms with clonidine as needed. -Reviewed the risks of ongoing drug use, including negative effects on mood, anxiety, overall health, illness transmission via needles, negative impact to relationships and functioning, and legal consequences. Reviewed that we cannot make a primary mental health diagnosis while he is actively using, and that the primary treatment recommendation is inpatient rehab. He states willingness to attend rehab at a specific facility in [place], wants to be able to go home first. Reviewed with him that this is certainly not recommended, due to the risk of relapse, and that we would recommend direct transfer from the hospital to a rehab facility. Reviewed the need to allow referrals to multiple facilities so that treatment can begin as soon as possible. The patient is psychiatrically appropriate for transfer to rehab as soon as a bed can be secured. -Staff have spoken to patient's mother so that she is aware of the plan to transfer him to rehab for detox today. Confirm that guns are secured and patient will not have access. (3) Benzodiazepine abuse: 12/25 -AWSS protocol for withdrawal. -See above regarding substance abuse treatment recommendations. - No signs of benzodiazepine withdrawal, vital signs stable. Post Discharge Appointments Primary Care Physician Name Of Family Doctor: [facility] Therapist Name of Therapist: None Sales Associate Fishing Name of Sales Associate Fishing: None Smoking Cessation Counseling Tobacco Cessation Medication Prescribed at Discharge: Offered & Pt Refused Discharge Plan Discharge Items Patient Disposition: Drug & Alcohol Rehab Reason For Visit: BIPOLAR Discharge Diagnosis: Heroin, cannabis and benzodiazepine use disorders. Malingering. Discharge Goals: Improve disease control, Improve function, Learn about illness and Specific goals Specific Goals: Transfer to inpatient rehab to address substance abuse. Activity: Per 'Additional Instructions' section Driving/Machine Use Comment: No driving until you have demonstrated sobriety from substances. Non-emergency contact: Primary Care Provider and Therapist Call non-emergency contact if: your symptoms worsen Follow-up/Referrals: Maya Monteiro MD [Primary Care Provider] - Diet: Regular Addtl Provider Instructions: SPECIAL CARE INSTRUCTIONS: 1. You are being transferred to inpatient rehab to address your substance abuse. Once he complete the program, he should follow up with outpatient substance abuse treatment. 2. He were not being prescribed any medications. You should not be prescribed medications that are addictive or abusable. 3. Utilize new healthy coping skills, anger management skills, and stress management skills learned during your hospitalization. Journal feelings and process them with a support person. Identify stressors or situations that may result in relapse, deterioration or inappropriate behaviors and develop a plan to deal with those issues. 4. If your coping skills are ineffective and you are in crisis, contact your outpatient providers for direction. If unable to reach your providers, please call the CAN HELP LINE AT or go to the closest Emergency Room. 5. Do not drink alcohol or use illicit drugs. 6. You have been provided with the Mental Health Advance Directives Pamphlet for your review. AFTERCARE APPOINTMENTS: * Please call your insurance company prior to your scheduled appointment to confirm your aftercare providers are covered. Take your insurance information to your appointments. WHO TO CALL AND WHEN: Medical Emergencies: For questions or emergencies related to your hospital stay, please contact the Inpatient Behavioral Health Unit at [phone]. A gaming worker is on-call 18/06 for the Behavioral Health Unit for emergencies At any time you feel your situation is an emergency, you may also call 911 immediately. Your Doctors Instructions noted above were prepared by provider Sandhya Stanley MD. Prescriptions: New clonidine HCl 0.1 mg Tablet 0.1 mg PO Q2H PRN (Reason: opiate withdrawal) Qty: 1 RF: 0 Stand-Alone Forms: [facility] Discharge Orders: Discharge Order (Routine); Ordered 12/25/18 Ordered By: Sandhya Stanley Admission Data Admit Date/Time: 12/24/18 22:55 Attending Provider: Sandhya Stanley Admit Provider: Latoya Jim Primary Care Provider: Maya Monteiro Service: Psychiatry Other Pending Studies at Discharge: No
[2018-12-25] MEDS: cloNIDine HCl 0.1 MG TAB PO SCH ×2 (12:46→16:06)
[2018-12-27 11:11] LABS: Hydrocodone Urine NEGATIVE NG/ML (CUTOFF=50); Hydromor Urine NEGATIVE NG/ML (CUTOFF=50); Marijuana Quant, GCMS Urine 1220 NG/ML (CUTOFF=5); Morphine Urine 588 NG/ML (CUTOFF=50); Norhydrocodone Conf Ur NEGATIVE NG/ML (CUTOFF=50); Noroxycodone Urine NEGATIVE NG/ML (CUTOFF=50); Oxycodone Urine NEGATIVE NG/ML (CUTOFF=50)
== END 2018-12-25 18:35 | disposition alcohol treatment (31) | DRG 897 ==
LOC: ED 18:23 → 3S 22:55